=== PATIENT | female | born 1985 | race Caucasian/White ===

== ENCOUNTER 2018-07-13 09:25 | Emergency (ER) | payer MEDICAID ==
[~2018-07-13] VITALS: Ht 167.6 cm; Wt 79.0 kg
[2018-07-13 14:42] VITALS: BP 121/65
== END 2018-07-13 15:02 | disposition home or self-care (01) ==
LOC: ER 09:25
DX: O26.892 Other specified pregnancy related conditions, second trimester (principal); J06.9 Acute upper respiratory infection, unspecified; J20.9 Acute bronchitis, unspecified; Z3A.18 18 weeks gestation of pregnancy
CPT/HCPCS: 71045; 81025; 93005; 99283